=== PATIENT | male | born 1965 | race African-American/Black ===

== ENCOUNTER 2019-11-15 13:28 | Emergency (ER) | payer BC ==
[2019-11-15 14:06] VITALS: BMI 25.1
--- NOTE | 2019-11-15 14:13 | PDOC ---
History of Present Illness - General Chief Complaint: Nausea/Vomiting Stated Complaint: NAUSEA & VOMITING Time Seen by Provider: 11/15/19 13:55 - History of Present Illness Initial Comments: 11/15/19 17:37 Chief complaint: Nausea, vomiting, body aches, fatigue, malaise, nonproductive cough and URI symptoms for several days. Today feels weak and dehydrated HPI: As noted above. Taking no medications. Went to work today, but only worked 1/2-day because he did not feel well Review of systems: Subjective fever, but did not take his temperature. No chest pain or shortness of breath. No abdominal pain or diarrhea. Remainder of systems reviewed and negative Past medical history: Healthy male, no active medical problems, kidney stones in the past Social family history reviewed and noncontributory Physical exam: Alert and oriented well-developed well-nourished no acute distress but appears fatigued. Cooperative Low-grade fever, otherwise vital signs normal PERRLA, fundi benign, ENT with only mild nasal congestion Neck supple without bruit mass or nodes Chest clear to P&A, full breath sounds bilaterally CV regular without murmur rub or gallop pulses full and symmetric no JVD or edema no bruits 70 and regular Abdomen nondistended. Bowel sounds normal. Soft without mass tenderness organomegaly Extremities no CCE Skin clear, no rash, adequate turgor, but mucous membranes are dry Neurological C2 to 12 intact, strength full and symmetric, no focal sensory or motor deficits, gait stable and unimpaired Impression: Flulike illness, mild dehydration Plan: Intravenous fluids, antiemetic, analgesic, CBC and chemistries, further evaluation depending on results of labs and response to therapy Past History - Past Medical History Allergies/Adverse Reactions: Allergies Allergy/AdvReac Type Severity Reaction Status Date / Time No Known Allergies Allergy Verified 07/05/16 07:32 Home Medications: Ambulatory Orders Tadalafil 20 mg PO ASDIR 11/15/19 Anemia: No Asthma: No Cancer: No Cardiac Disorders: No CVA: No COPD: No CHF: No Dementia: No Diabetes: No GI Disorders: No Disorders: Yes (kidney stones 2010) HTN: No Hypercholesterolemia: No Kidney Stones: Yes Liver Disease: No Seizures: No Thyroid Disease: No - Immunization History Immunization Up to Date: Yes - Psycho Social/Smoking Cessation Hx Smoking History: Never smoked Have you smoked in the past 12 months: No If you are a former smoker, when did you quit?: 30 years ago Hx Alcohol Use: No Drug/Substance Use Hx: No Substance Use Type: None Hx Substance Use Treatment: No *Physical Exam - Vital Signs Last Vital Signs Temp Pulse Resp BP Pulse Ox 100.3 F H 89 18 119/68 100 11/15/19 13:30 11/15/19 13:30 11/15/19 13:30 11/15/19 13:30 11/15/19 13:30 ED Treatment Course - LABORATORY CBC & Chemistry Diagram: 11/15/19 14:45 11/15/19 14:45 Medical Decision Making - Medical Decision Making 11/15/19 15:16 CBC and chemistries: No significant abnormalities, normal white count but mild left shift. Urine clear Much improved after fluids and Zofran. No further vomiting. No abdominal pain. Abdomen soft nontender without mass organomegaly. Coughing has subsided Fully ambulatory and in no pain or other distress at discharge to follow-up as needed. 11/15/19 17:41 11/15/19 17:42 Discharge - Discharge Information Problems reviewed: Yes Clinical Impression/Diagnosis: Viral gastroenteritis Condition: Improved Disposition: HOME - Admission No - Follow up/Referral Referrals: Vilma Trotter MD [Primary Care Provider] - 2 Days - Patient Discharge Instructions Patient Printed Discharge Instructions: DI for Nausea -- Adult, DI for Vomiting -- Adult - Post Discharge Activity
[2019-11-15] MEDS ORDERED: ACETAMINOPHEN 1000 MG/100 ML VIAL (NON FORMULARY) IVPB ONE (14:15)
[2019-11-15] MEDS ORDERED: SODIUM CHLORIDE 1,000 ML IV STA ×2 (14:15→15:20)
[2019-11-15] MEDS ORDERED: ACETAMINOPHEN INJECTION 100 ML IVPB ONE (14:31)
[2019-11-15 15:08] LABS: HEMATOCRIT 47.1 % (35.4-49); HEMOGLOBIN 15.3 GM/dl (11.7-16.9); MCH 27.6 pg (25.7-33.7); MCHC 32.6 g/dl (32.0-35.9); MEAN CELL VOLUME 84.8 fl (80-96); PLATELET COUNT 147 K/MM3 (134-434); RBC 5.55 M/mm3 (4.00-5.60); RDW 12.1 % (11.9-15.9); WHITE BLOOD COUNT 7.6 K/mm3 (4.0-10.8)
[2019-11-15 15:12] LABS: ALBUMIN 4.4 g/dl (3.4-5.0); BILIRUBIN,TOTAL 0.8 mg/dl (0.2-1); CALCIUM 8.8 mg/dl (8.5-10); CREATININE 1.2 mg/dl (0.55-1.3); POTASSIUM 3.7 mmol/L (3.5-5.1); TOT PROT 7.1 g/dl (6.4-8.2)
[2019-11-15] MEDS ORDERED: KETOROLAC TROMETHAMINE 30 MG/1 ML VIAL IVPUSH ONE (15:21)
[2019-11-15] MEDS ORDERED: KETOROLAC TROMETHAMINE 30 MG/1 ML VIAL ONE (15:28)
[2019-11-15 15:35] LABS: PLATELET ESTIMATE ADEQUATE
[2019-11-15 17:13] VITALS: BP 100/68; PULSE 88; TEMP 99.1
== END 2019-11-15 17:18 | disposition home or self-care (01) ==
LOC: FER 13:28
PROC: 3E033NZ Introduction of Analgesics, Hypnotics, Sedatives into Peripheral Vein, Percutaneous Approach (ICD-10-PCS; principal; 2019-11-15)
PROC: 3E0333Z Introduction of Anti-inflammatory into Peripheral Vein, Percutaneous Approach (ICD-10-PCS; 2019-11-15)
PROC: 3E0337Z Introduction of Electrolytic and Water Balance Substance into Peripheral Vein, Percutaneous Approach (ICD-10-PCS; 2019-11-15)
DX: A08.4 Viral intestinal infection, unspecified (principal)
CPT/HCPCS: 36415; 80053; 81003; 85025; 99282-25; J0131; J7030

== ENCOUNTER 2022-08-05 09:41 | Emergency (ER) | payer SELFPAY ==
[2022-08-05 10:07] VITALS: BP 93/51; PULSE 86; RESP 20; TEMP 98.3; BMI 26.9
[2022-08-05] MEDS ORDERED: SODIUM CHLORIDE 1,000 ML IV ONE (10:55)
[2022-08-05] MEDS ORDERED: ONDANSETRON 4 MG/2 ML VIAL IVPB ONE (10:55)
[2022-08-05] MEDS ORDERED: ACETAMINOPHEN 1000 MG/100 ML BAG IVPB ONE (10:55)
[2022-08-05] MEDS ORDERED: FAMOTIDINE 20 MG/50 ML IVPB 20 MG/50 ML MG IVPB ONE ×2 (10:55→11:07)
[2022-08-05] MEDS ORDERED: ACETAMINOPHEN INJECTION 100 ML IVPB ONE (11:07)
[2022-08-05] MEDS ORDERED: ONDANSETRON 4 MG/2 ML VIAL ONE (11:07)
[2022-08-05 12:05] LABS: BASO % 0.3 % (0-2.0); EOS % 0.1 % (0-4.5); HEMATOCRIT 49.9 % (35.4-49); HEMOGLOBIN 16.2 GM/dL (11.7-16.9); LYMPH % 15.6 % (8-40); MCH 27.3 pg (25.7-33.7); MCHC 32.5 g/dl (32.0-35.9); MEAN PLT VOLUME 9.5 fl (7.5-11.1); MONO % 12.4 % (3.8-10.2); NEUT % 71.6 % (42.8-82.8); PLATELET COUNT 136 10^3/uL (134-434); RBC 5.94 M/mm3 (4.00-5.60); RDW 14.3 % (11.9-15.9); WHITE BLOOD COUNT 3.4 K/mm3 (4.0-10.0)
[2022-08-05 12:21] LABS: CALCIUM 8.4 mg/dL (8.5-10.1)
[2022-08-05 12:22] LABS: ALBUMIN 3.4 g/dl (3.4-5.0); BLOOD UREA NITROGEN 15.1 mg/dL (7-18)
[2022-08-05 12:25] LABS: CREATININE 1.5 mg/dL (0.55-1.3)
[2022-08-05 12:26] LABS: BILIRUBIN,TOTAL 0.5 mg/dL (0.2-1)
[2022-08-05 12:27] LABS: TOT PROT 6.5 g/dl (6.4-8.2)
== END 2022-08-05 13:00 | disposition home or self-care (01) ==
LOC: JER 09:41
PROC: 3E033NZ Introduction of Analgesics, Hypnotics, Sedatives into Peripheral Vein, Percutaneous Approach (ICD-10-PCS; principal; 2022-08-05)
PROC: 3E033GC Introduction of Other Therapeutic Substance into Peripheral Vein, Percutaneous Approach (ICD-10-PCS; 2022-08-05)
PROC: 3E0337Z Introduction of Electrolytic and Water Balance Substance into Peripheral Vein, Percutaneous Approach (ICD-10-PCS; 2022-08-05)
DX: U07.1 COVID-19 (principal); R11.10 Vomiting, unspecified; M79.10 Myalgia, unspecified site
CPT/HCPCS: 0241U-QW; 36415; 80053; 83690; 85025; 99284-25